=== PATIENT | male | born 1970 | race African-American/Black ===

== ENCOUNTER 2021-09-14 16:44 | Emergency (ER) | payer OTHER ==
[2021-09-14 17:22] LABS: BILIRUBIN NEGATIVE (NEGATIVE); BLOOD TRACE-INTACT Ery/uL (NEGATIVE); CLARITY CLEAR (CLEAR); COLOR YELLOW (YELLOW); GLUCOSE (U) NORMAL (NORMAL); LEUKOCYTES NEGATIVE Leu/uL (NEGATIVE); NITRITE NEGATIVE (NEGATIVE); PROTEIN 1+ mg/dL (NEGATIVE); SPECIFIC GRAVITY 1.015 (1.001-1.030); UROBILINOGEN 0.2 mg/dL (0.2-1.0)
[2021-09-14 17:29] LABS: ECSTASY (MDMA) NEGATIVE (NEGATIVE); MARIJUANA (THC) POSITIVE (NEGATIVE)
[2021-09-14 17:30] LABS: AMPHETAMINES NEGATIVE (NEGATIVE); BARBITURATES NEGATIVE (NEGATIVE); METHADONE NEGATIVE (NEGATIVE); OPIATES NEGATIVE (NEGATIVE); OXYCODONE NEGATIVE (NEGATIVE)
[2021-09-14 17:37] LABS: BACTERIA TRACE; URINARY RBC RARE
[2021-09-14 17:38] LABS: SQUAMOUS EPITHELIAL CELLS RARE
[2021-09-14 17:40] LABS: BASOPHIL 0.2 % (0-2); EOSINOPHIL 1.5 % (0-5); HCT 39.6 % (42.0-52.0); HGB 12.7 g/dl (13.2-18.0); LYMPHOCYTE 24.1 % (15-48); MCH 27.5 pg (25.0-31.0); MCHC 32.1 g/dL (32.0-36.0); MCV 85.7 fL (78.0-100.0); MONOCYTE 9.3 % (0-12); MPV 10.4 fL (6.0-9.5); NEUTROPHIL 64.6 % (41-80); NRBC 0; PLT 161 K/uL (150-400); RBC 4.62 M/uL (4.70-6.00); WBC 5.9 K/uL (4.0-10.5)
[2021-09-14 17:53] LABS: ALBUMIN 3.9 g/dL (3.4-5.0); BILIRUBIN - TOTAL 0.2 mg/dL (0.2-1.0); BUN/CREAT RATIO (CALC) 7.1 RATIO; CREATININE 1.13 mg/dL (0.67-1.17); GLOBULIN (CALCULATION) 3.1 g/dL; POTASSIUM 3.7 mmol/L (3.5-5.1)
== END 2021-09-14 22:45 | disposition other institution (70) ==
LOC: FER 16:44
PROVIDERS: Emergency Medicine
DX: R45.851 Suicidal ideations (principal); I10 Essential (primary) hypertension; Z20.822 Contact with and (suspected) exposure to COVID-19; Z28.311 Partially vaccinated for COVID-19; Z79.899 Other long term (current) drug therapy
CPT/HCPCS: 36415; 80053; 80305; 81001; 85025; 99285; G0480; U0002